=== PATIENT | male | born 1950 | race Caucasian/White ===

== ENCOUNTER 2017-04-04 17:08 | Emergency (ER) | payer MEDICARE ==
[~2017-04-04] VITALS: Ht 180.3 cm; Wt 118.0 kg
[~2017-04-04 17:08] MED LIST: ALPR.5 PO; CEFP500 PO; CENTRUM SILVER1 EAC2 PO; ENOX120I PO; Hydromet Syrup473 ML PO; LOVENOX SC; METO25 PO; PARO20 PO; WARF5 PO
[2017-04-04] MEDS ORDERED: [UNRECOGNIZED DRUG - OTHER] (17:44)
[2017-04-04] MEDS ORDERED: Metoprolol Tart25 MG PO (17:45)
[2017-04-04 18:43] LABS: Prothrombin Time Results 121.5 Sec (9.7-11.5)
[2017-04-04 18:45] LABS: International Normalized Ratio 10.85
== END 2017-04-04 20:12 | disposition home or self-care (01) ==
LOC: ER 17:08
PROVIDERS: Emergency Medicine
DX: R79.1 Abnormal coagulation profile (principal); Z79.899 Other long term (current) drug therapy; Z79.01 Long term (current) use of anticoagulants
CPT/HCPCS: 36415; 85610; 99283

== ENCOUNTER 2021-08-22 18:29 | Emergency (ER) | payer MEDICARE ==
[~2021-08-22] VITALS: Ht 180.3 cm; Wt 122.5 kg
[~2021-08-22 18:29] MED LIST changes: +Metoprolol Tart25 MG PO; +[UNRECOGNIZED DRUG - OTHER]
[2021-08-22 19:13] LABS: BASOPHILS ABSOLUTE AUTO 0.08 K/mm3 (0.00-0.23); BASOPHILS PERCENT AUTO 1 % (0-2); EOSINOPHILS ABSOLUTE AUTO 0.22 K/mm3 (0.00-0.68); EOSINOPHILS PERCENT AUTO 3 % (0-6); Hematocrit 42.6 % (37.0-53.0); Hemoglobin 14.8 g/dL (13.5-17.5); IMMATURE GRAN ABSOLUTE AUTO 0.02 K/mm3 (0.00-0.10); IMMATURE GRAN PERCENT AUTO 0 % (0-1); LYMPHOCYTES ABSOLUTE AUTO 2.47 K/mm3 (0.84-5.20); LYMPHOCYTES PERCENT AUTO 33 % (21-46); MONOCYTES ABSOLUTE AUTO 0.75 K/mm3 (0.16-1.47); MONOCYTES PERCENT AUTO 10 % (4-13); Mean Corpuscular HGB 30.3 pg (26.0-34.0); Mean Corpuscular HGB Conc 34.7 g/dL (31.5-36.5); Mean Corpuscular Volume 87 fL (80-100); Mean Platelet Volume 10.1 fL (9.1-12.4); NEUTROPHILS ABSOLUTE AUTO 3.91 K/mm3 (1.96-9.15); NEUTROPHILS PERCENT AUTO 52 % (41-73); Platelet Count 196 K/mm3 (150-400); RDW Standard Deviation 38.7 fL (35.1-46.3); Red Blood Cell Count 4.88 M/mm3 (4.30-5.90); White Blood Cell Count 7.45 K/mm3 (4.00-11.30)
[2021-08-22 19:20] LABS: Albumin, Blood 3.6 g/dL (3.4-5.0); Albumin/Globulin Ratio 0.9 (0.8-1.8); Bilirubin, Total 0.3 mg/dL (0.1-1.0); Calcium, Blood 9.2 mg/dL (8.5-10.1); Creatinine, Blood 1.05 mg/dL (0.60-1.20); Globulin, Blood 3.9 g/dL (2.2-4.0); Total Protein, Blood 7.5 g/dL (6.4-8.2)
== END 2021-08-23 01:12 | disposition home or self-care (01) ==
LOC: ER 18:29
PROVIDERS: Physician Assistant
DX: K81.9 Cholecystitis, unspecified (principal); M54.9 Dorsalgia, unspecified; R11.2 Nausea with vomiting, unspecified; R07.9 Chest pain, unspecified; Z79.01 Long term (current) use of anticoagulants; Z79.899 Other long term (current) drug therapy
CPT/HCPCS: 36415; 71046; 71275; 80053; 83690; 83880; 84484; 85025; 93005; 93010; 99284-25; Q9967

== ENCOUNTER 2021-12-07 06:11 | Day surgery (SDC) | payer MEDICARE ==
[~2021-12-07] VITALS: Ht 180.3 cm; Wt 125.6 kg
[2021-12-07] MEDS ORDERED: ACET325 PO (06:35)
[2021-12-07] MEDS ORDERED: ATOR40TA PO (06:35)
[2021-12-07] MEDS ORDERED: GEMF600 PO (06:36)
[2021-12-07] MEDS ORDERED: PARO20 PO (06:37)
[2021-12-07] MEDS ORDERED: METO25 PO (06:37)
[2021-12-07] MEDS ORDERED: SILD50TA PO (06:39)
--- NOTE | 2021-12-07 07:36 | NUR ---
History, Chart, Medications and Allergies reviewed before start of procedure. Patient confirms NPO status and agrees with scheduled surgery. Patient States Post-Procedure ride home has been arranged WITH PARTNER EVA . WATCH AND RING GIVEN TO PARTNER EVA IN PREOP.
--- NOTE | 2021-12-07 09:40 | NUR ---
Dressing to procedure site clean, dry, intact with no visible drainage, swelling, erythema or bruising noted.
--- NOTE | 2021-12-07 09:54 | NUR ---
Discharge instructions reviewed with patient. Patient verbalizes understanding. Copy given to patient to take home.
--- NOTE | 2021-12-07 10:10 | NUR ---
Discharged via wheelchair to private car for ride home.
== END 2021-12-07 10:11 | disposition home or self-care (01) ==
LOC: ORSCMMR 06:11 → ORD 07:30 → ORSCMMR 10:11
PROVIDERS: Surgery
PROC: 0FT44ZZ Resection of Gallbladder, Percutaneous Endoscopic Approach (ICD-10-PCS; principal; 2021-12-07 07:30)
DX: K80.10 Calculus of gallbladder with chronic cholecystitis without obstruction (principal); I10 Essential (primary) hypertension; G47.33 Obstructive sleep apnea (adult) (pediatric); Z79.899 Other long term (current) drug therapy; E66.9 Obesity, unspecified; Z68.38 Body mass index [BMI] 38.0-38.9, adult
CPT/HCPCS: 88304; J0330; J0694; J1100; J1885; J2250; J2405; J2704; J2710; J2795; J3010; J7120

== ENCOUNTER → 2023-12-11 | Outpatient (CLI) | payer MEDICARE ==
[~2023-12-11] MED LIST changes: +ACET325 PO; +ATOR40TA PO; +GEMF600 PO; +SILD50TA PO
[2023-12-11 15:53] LABS: BASOPHILS ABSOLUTE AUTO 0.08 K/mm3 (0.00-0.23); BASOPHILS PERCENT AUTO 1 % (0-2); EOSINOPHILS ABSOLUTE AUTO 0.16 K/mm3 (0.00-0.68); EOSINOPHILS PERCENT AUTO 3 % (0-6); Hematocrit 43.6 % (37.0-53.0); IMMATURE GRAN ABSOLUTE AUTO 0.03 K/mm3 (0.00-0.10); IMMATURE GRAN PERCENT AUTO 1 % (0-1); LYMPHOCYTES PERCENT AUTO 22 % (21-46); MONOCYTES ABSOLUTE AUTO 0.49 K/mm3 (0.16-1.47); MONOCYTES PERCENT AUTO 8 % (4-13); Mean Corpuscular HGB 30.2 pg (26.0-34.0); Mean Corpuscular HGB Conc 34.4 g/dL (31.5-36.5); Mean Corpuscular Volume 88 fL (80-100); Mean Platelet Volume 10.8 fL (9.1-12.4); NEUTROPHILS ABSOLUTE AUTO 4.11 K/mm3 (1.96-9.15); NEUTROPHILS PERCENT AUTO 66 % (41-73); Platelet Count 228 K/mm3 (150-400); RDW Coefficient Variation 12.2 % (11.7-14.2); RDW Standard Deviation 39.1 fL (35.1-46.3); Red Blood Cell Count 4.97 M/mm3 (4.30-5.90); White Blood Cell Count 6.27 K/mm3 (4.00-11.30)
[2023-12-11 16:40] LABS: Free Thyroxine 0.96 ng/dL (0.70-1.60)
[2023-12-11 17:04] LABS: Alanine Aminotransfer (ALT/SGP 39 U/L (12-78); Albumin, Blood 3.7 g/dL (3.4-5.0); Albumin/Globulin Ratio 1.1 (0.8-1.8); Alk Phos 100 U/L (50-136); Anion Gap 12 mmol/L (3-11); Aspartate Aminotrans (AST/SGOT 24 U/L (12-37); Bilirubin, Total 0.4 mg/dL (0.1-1.0); Blood Urea Nitrogen 18 mg/dL (8-24); CHOL/HDL RATIO 3.9; CO2, Blood 21 mmol/L (21-32); Calcium, Blood 8.7 mg/dL (8.5-10.1); Chloride, Blood 107 mmol/L (98-108); Cholesterol 174 mg/dL (50-200); Creatinine, Blood 0.86 mg/dL (0.60-1.20); Globulin, Blood 3.4 g/dL (2.2-4.0); Glomerular Filtration Rate 93 (60-); Glucose, Blood 164 mg/dL (70-99); HDL Cholesterol 45 mg/dL (>39); LDL/HDL RATIO 2.2; Low Density Lipoprotein Chol 99 mg/dL (0-110); Potassium, Blood 4.1 mmol/L (3.5-5.5); Sodium, Blood 136 mmol/L (136-145); Total Protein, Blood 7.1 g/dL (6.4-8.2); Triglycerides 152 mg/dL (30-160); Very Low Density Lipoprot Chol 30 mg/dL (6-32)
== END ==
LOC: LAB 12:25 → LAB SHORT 12:25
PROVIDERS: Nurse Practitioner Family
DX: Z12.5 Encounter for screening for malignant neoplasm of prostate (principal); E11.9 Type 2 diabetes mellitus without complications; E04.9 Nontoxic goiter, unspecified; R14.0 Abdominal distension (gaseous)
CPT/HCPCS: 80053; 80061; 83036; 83880; 84439; 84443; 85025; G0103